=== PATIENT | female | born 1985 | race African-American/Black ===

== ENCOUNTER 2021-02-16 06:30 | Emergency (ER) | payer OTHER ==
[~2021-02-16] VITALS: Ht 167.6 cm; Wt 90.7 kg
[2021-02-16] MEDS ORDERED: METOCLOPRAM5 MG/5 M3 PO (07:11)
[2021-02-16] MEDS ORDERED: ONDANSETRON HCL4 M2 PO (07:11)
[2021-02-16] MEDS ORDERED: FAMOTIDINE 20 M20 MG PO (07:11)
[2021-02-16] MEDS ORDERED: HYDROCODON-ACE1 EAC7 PO (07:12)
[2021-02-16 07:13] LABS: ABSOLUTE NEUTROPHILS 5.2 thou/uL (1.4-8.2); BASOPHILS 0.4 % (0.0-2.0); EOSINOPHILS 0.5 % (0.0-3.0); HEMATOCRIT 39.8 % (37.0-47.0); LYMPHOCYTES 24.8 % (24.0-44.0); MCH 28.5 pg (26.0-34.0); MCHC 32.7 g/dL (28.0-37.0); MCV 87.4 fL (80.0-100.0); MONOCYTES 6.8 % (1.0-8.0); PLATELET COUNT 322 thou/uL (150-400); POLYS 67.5 % (36.0-66.0); RBC 4.56 mil/uL (4.20-5.00); RDW 13.9 % (10.5-14.5); WBC 7.8 thou/uL (4.0-11.0)
[2021-02-16 07:16] LABS: ANION GAP 10 mmol/L (7-16); BUN 5 mg/dL (7-18); CALCIUM 8.7 mg/dL (8.5-10.1); CHLORIDE 102 mmol/L (98-107); CO2 25 mmol/L (21-32); GLUCOSE 96 mg/dL (74-106); POTASSIUM 3.7 mmol/L (3.5-5.1); SODIUM 137 mmol/L (136-145)
[2021-02-16 07:27] LABS: ALBUMIN 3.6 g/dL (3.4-5.0); AMYLASE 32 U/L (25-115); DIRECT BILIRUBIN 0.1 mg/dL (<0.1-0.2); LIPASE 53 U/L (73-393); SGOT 15 U/L (15-37); SGPT 18 U/L (30-65); TOTAL BILIRUBIN 0.9 mg/dL (0.2-1.0); TOTAL PROTEIN 7.8 g/dL (6.4-8.2); TROPONIN-I <0.06 ng/mL (<0.06)
[2021-02-16] MEDS ORDERED: BENTYL 10 MG CA10 M1 PO (08:23)
[2021-02-16] MEDS ORDERED: NORCO5 PO (08:23)
[2021-02-16] MEDS ORDERED: ZOFRAN ODT4 MG PO (08:23)
[2021-02-16 08:37] LABS: URINE BILIRUBIN NEGATIVE (Negative); URINE BLOOD 3+ (Negative); URINE CLARITY SL CLOUDY; URINE COLOR YELLOW; URINE GLUCOSE-RANDOM* NEGATIVE (Negative); URINE KETONES NEGATIVE (Negative); URINE LEUKOCYTES-REFLEX NEGATIVE (Negative); URINE NITRITE-REFLEX NEGATIVE (Negative); URINE PROTEIN (DIPSTICK) NEGATIVE (Negative); URINE SPECIFIC GRAVITY 1.025 (1.005-1.035); URINE UROBILINOGEN 0.2 E.U./dl (0.2-1.0)
[2021-02-16 08:46] VITALS: BP 111/64
[2021-02-16 09:49] LABS: SQUAMOUS >10 Many /LPF (0-3)
[2021-02-16 09:50] LABS: CASTS None Seen /LPF (None Seen); MUCUS >6 Heavy strn/LPF (None Seen)
[2021-02-16 09:51] LABS: AMORPHOUS PHOSPHATES Few /LPF (None Seen); BACTERIA-REFLEX 1-9 Few /HPF (None Seen); URINE RBC 3-10 Few /HPF (0-2); URINE WBC-REFLEX 0-5 Rare /HPF (0-5)
--- NOTE | 2021-02-17 11:27 | EKG ---
[address] [address] ELECTROCARDIOGRAM REPORT Name: MANZANO,AMA CARCAMO [id number] Admission: 02/16/21 Attend Phys: Discharge: 02/16/21 Date of : 89 Report #: [id number] [facility] ED Test Date: 2021-02-16 Test Time: 06:43:53 Pat Name: AMA MANZANO Department: Room: Gender: F Central Office Associate: JAMARI : 1985 Requested By: Matt Meade Order Number: [id number] MD: Babak Ryan Measurements Intervals [place] Rate: 48 P: 55 ND: 164 QRS: -10 QRSD: 90 T: 8 QT: 437 QTc: 391 Interpretive Statements Sinus bradycardia Left atrial enlargement No previous ECG available for comparison Electronically Signed On 02-17-2021 11:27:07 CDT by Babak Ryan [email or web address] <ELECTRONICALLY SIGNED> By: Babak Ryan MD, [facility] 02/17/21 [id number] Babak Ryan MD, FACC /EPI
== END 2021-02-16 08:47 | disposition home or self-care (01) ==
LOC: ER 06:30
PROVIDERS: Emergency Medicine
DX: K80.20 Calculus of gallbladder without cholecystitis without obstruction (principal); Z79.899 Other long term (current) drug therapy

== ENCOUNTER 2021-02-17 02:29 | Inpatient (IN) | payer OTHER ==
[~2021-02-17] VITALS: Ht 167.6 cm; Wt 89.4 kg
--- NOTE | ~2021-02-17 | O ---
[place] [address] OPERATIVE REPORT Name: AMA MANZANO Room #: 433-I [facility] IN M.R.#: [id number] Admission: 02/17/21 Attend Phys: Zeeshan Tyler, Discharge: 02/18/21 Date of : 89 Report #: [id number] THIS REPORT FOR: cc: VLAD - Lizz family physician/PCP VLAD - No family physician/PCP Zeeshan Tyler MD ~ DATE OF SERVICE: 02/18/2021 PREOPERATIVE DIAGNOSIS: Symptomatic cholelithiasis. POSTOPERATIVE DIAGNOSIS: Symptomatic cholelithiasis. OPERATION: Laparoscopic cholecystectomy. SURGEON: Zeeshan Tyler MD ANESTHESIA: General. ESTIMATED BLOOD LOSS: Minimal. SPECIMEN: Gallbladder. DESCRIPTION OF PROCEDURE: After informed consent was obtained, the patient was brought to the operating room and placed supine. SCDs were placed and working, preoperative antibiotics were administered, general anesthesia was induced. The abdomen was prepped and draped in the usual sterile fashion. A 10 mm incision was made above the umbilicus. Fascia was incised and a trocar was placed. Pneumoperitoneum was established. Three right upper quadrant 5 mm ports were placed. Gallbladder was grasped at the fundus and retracted cephalad. Infundibulum was grasped and retracted laterally. I dissected out the cystic duct and cystic artery. The cystic duct and artery were clipped and ligated leaving 2 clips on the remaining duct and 1 on the remaining artery. Gallbladder and cystic plate were fully identified, and all structures identified before any clipping or cutting. Gallbladder was then taken off the liver bed with electrocautery. It was placed into an Endopouch and removed. The fascia was then closed with a [id number] 0 Vicryl. Skin was closed with 4-0 Monocryl. Incisions were dressed with Steri-Strips. COMPLICATIONS: None. DISPOSITION: The patient was taken to recovery in satisfactory condition. By: 0815 [id number] Zeeshan Tyler MD /nt
[~2021-02-17 02:29] MED LIST: BENTYL 10 MG CA10 M1 PO; FAMOTIDINE 20 M20 MG PO; HYDROCODON-ACE1 EAC7 PO; METOCLOPRAM5 MG/5 M3 PO; NORCO5 PO; ONDANSETRON HCL4 M2 PO; ZOFRAN ODT4 MG PO
[2021-02-17 02:38] VITALS: BP 166/81
[2021-02-17 02:57] LABS: ABSOLUTE NEUTROPHILS 6.1 thou/uL (1.4-8.2); BASOPHILS 0.7 % (0.0-2.0); EOSINOPHILS 0.7 % (0.0-3.0); HEMATOCRIT 41.7 % (37.0-47.0); HEMOGLOBIN 13.6 gm/dL (12.0-15.0); LYMPHOCYTES 26.6 % (24.0-44.0); MCH 28.4 pg (26.0-34.0); MCHC 32.6 g/dL (28.0-37.0); MCV 87.1 fL (80.0-100.0); MONOCYTES 5.2 % (1.0-8.0); PLATELET COUNT 321 thou/uL (150-400); POLYS 66.8 % (36.0-66.0); RBC 4.79 mil/uL (4.20-5.00); RDW 13.9 % (10.5-14.5); WBC 9.1 thou/uL (4.0-11.0)
[2021-02-17 03:07] LABS: CALCIUM 8.7 mg/dL (8.5-10.1); CREATININE 1.1 mg/dL (0.6-1.0); POTASSIUM 3.1 mmol/L (3.5-5.1)
[2021-02-17 03:17] LABS: DIRECT BILIRUBIN 0.1 mg/dL (<0.1-0.2); TOTAL BILIRUBIN 0.8 mg/dL (0.2-1.0); TOTAL PROTEIN 8.3 g/dL (6.4-8.2)
[2021-02-17 03:56] LABS: URINE BILIRUBIN NEGATIVE (Negative); URINE BLOOD 3+ (Negative); URINE CLARITY CLEAR; URINE COLOR YELLOW; URINE GLUCOSE-RANDOM* NEGATIVE (Negative); URINE KETONES TRACE (Negative); URINE LEUKOCYTES-REFLEX NEGATIVE (Negative); URINE NITRITE-REFLEX NEGATIVE (Negative); URINE PROTEIN (DIPSTICK) NEGATIVE (Negative); URINE SPECIFIC GRAVITY 1.025 (1.005-1.035); URINE UROBILINOGEN 0.2 E.U./dl (0.2-1.0)
[2021-02-17 04:27] LABS: BACTERIA-REFLEX None Seen /HPF (None Seen); CRYSTALS None Seen /LPF (None Seen); HYALINE CASTS 0-3 Few /LPF (None Seen); MUCUS 0-3 Light strn/LPF (None Seen); SQUAMOUS 0-3 Few /LPF (0-3); URINE RBC 3-10 Few /HPF (0-2); URINE WBC-REFLEX 0-5 Rare /HPF (0-5)
[2021-02-17 06:45] VITALS: BP 134/65
[2021-02-17 07:09] VITALS: BP 138/69
[2021-02-17 08:01] VITALS: BP 170/91
--- NOTE | 2021-02-17 09:11 | NUR ---
DR. GEORGES ASKED RN ABOUT CORONOVIRUS RESULTS FROM THIS AM. RN CALLED LAB AND LAB STATED THAT 1ST BATCH WILL BE RUN AT 1030 AND RESULTS SHOULD BE AFTER 1330 TODAY.
--- NOTE | 2021-02-17 14:53 | NUR ---
0730- PT ARRIVED FROM ER VIA WHEELCHAIR. PT COMPLAINS OF ABDOMINAL PAIN WELL NAUSEA. PT IS UP AD TANMAY IN ROOM AND IS WITNESSED STABLE ON FEET BY RN. WILL CALL PHYSICIAN FOR NEW ORDERS.
[2021-02-17 16:56] VITALS: BP 120/67
--- NOTE | 2021-02-17 19:19 | NUR ---
REPORT GIVEN TO ON COMMING NURSE RESTREPO. CONSENT FOR SURGERY TOMORROW SIGNED AND PLACED ON CHART.
[2021-02-17 21:08] VITALS: BP 160/84
[2021-02-18] VITALS (7 sets, daily range): BP systolic 113–160; BP diastolic 68–87
--- NOTE | 2021-02-18 00:26 | NUR ---
PT AOX4. PT REPORTS 8/10 PAIN IN ABDOMEN. PT RECEIVING PRN IV MORPHINE Q3HR. PT REPORTS SOB AT REST, NO DESATURATIONS NOTED, RELIEF OBTAINED WITH INTERMITTENT USE OF 2L O2 VIA NC AND MAINTAINING ELEVATED HOB. PT TOLERATING PO INTAKE OF FLUIDS AND CLEAR LIQUID DIET WITH MINIMAL ISSUE. PT WITH NAUSEA AND X1 EMESIS. PT RECEIVING PRN IV ZOFRAN Q6HR WITHOUT EFFECT. ATTENDING DR. GEORGES NOTIFIED, RECEIVED ORDERS FOR PRN IVPB 25MG PHENERGAN Q6HR AND TO CHANGE FREQUENCY OF ZOFRAN FROM Q6HR TO Q4HR. COLLABORATED WITH PHARMACY AND ATTENDING, ORDERS RECEIVED TO DISCONTINUE PHENERGAN, START PRN IV 10MG COMPAZINE Q6HR AND PRN IV 5MG REGLAN Q8HR. REGLAN AND COMPAZINE GIVEN WITH POSITIVE EFFECT, PT REPORTING INTERMITTENT NAUSEA WITHOUT EMESIS. PT AMBULATING INDEPENDENTLY IN ROOM AND TO BATHROOM, RESTING IN BED OTHERWISE. FREQUENT REPOSITIONING ENCOURAGED WHILE IN BED, PT NOTED TO SHIFT INDEPENDENTLY WHILE IN BED. SENSATION INTACT, CAPILLARY REFILL LESS THAN 3SEC IN ALL EXTREMITIES. PT ENCOURAGED TO NOTIFY STAFF FOR ALL NEEDS, CALL LIGHT WITHIN REACH, BED LOCKED IN LOWEST POSITION, FREQUENT MONITORING WILL CONTINUE.
[2021-02-18] MEDS ORDERED: NORCO5 PO (08:15)
[2021-02-18] MEDS ORDERED: PHENERGAN 25 MG25 MG PO (08:16)
--- NOTE | 2021-02-18 11:11 | NUR ---
ASSESSMENT: CM REVIEWED CHART AND SPOKE WITH PATIENT AT THE BEDSIDE. PT IS S/P LAP[ JAMES. PT REPORTS LIVING AT HOME WITH HER CHILDREN IN A HOUSE. PT REPORTS BEING FULLY INDEPENDENT WITH ADLS AND AMBULATION. PT REPORTS SHE HAS NO DME OR THE NEED FOR IT. PT HAS NO PAST HX OF HH OR SNF. PT REPORTS HAVING A PCP. CM DISCUSSED ROLE. PT DOES NOT ANTICIPATE HAVING ANY NEEDS FROM. PLANS ARE FOR PATIENT TO DISCHARGE HOME TODAY.
--- NOTE | 2021-02-18 11:50 | NUR ---
PT WENT FOR [employer] [facility] AROUND 0640, CAME BACK TO THE UNIT AROUND 0930. PT ALERT X ORIENTED X 4. ON ROOM AIR. VSS. NO C/O PAIN. DRINKING WELL. NO C/O NAUSEA/VOMITING. IV RT AC SALINE LOCKED. FALL PRECAUTION IN PLACE. CALL LIGHT WITHIN REACH. ON OBSERVATION. PROBABLE DC TODAY. NOT URINATED UNTILL 1045. WILL CONT TO MONITOR.
== END 2021-02-18 13:04 | disposition home or self-care (01) | DRG 419 ==
LOC: ER 02:29 → EROBS 05:50 → 4S 07:08
PROVIDERS: Emergency Medicine; ADMIT Surgery; ATTEND Surgery
PROC: 0FT44ZZ Resection of Gallbladder, Percutaneous Endoscopic Approach (ICD-10-PCS; principal; 2021-02-18)
DX: K80.20 Calculus of gallbladder without cholecystitis without obstruction (principal); E89.0 Postprocedural hypothyroidism; Z79.899 Other long term (current) drug therapy; Z20.822 Contact with and (suspected) exposure to COVID-19
CPT/HCPCS: 10195; 50010; 50101; 50411; 50555; 51489; 52265; 52266; 53307; 53312; 53314; 55245; 56462; 56525; 56526; 58574; 62110; 62900; 70005